=== PATIENT | male | born 1965 | race Caucasian/White ===

== ENCOUNTER 2021-02-26 19:32 | Observation (INO) | payer MEDICARE, OTHER ==
[2021-02-26] MEDS ORDERED: FUROSEMIDE 10 MG/ML 4 ML VIAL IV STA (19:56)
[2021-02-26] MEDS ORDERED: NITROGLYCERIN OINT 1 INCH/GM PACKET TOPICAL STA (19:57)
[2021-02-26 20:05] LABS: Basophils % (A) 1 %; Eosinophils # (A) 0.2 k/uL (0-0.7); Eosinophils % (A) 3 %; HCT 35.6 % (39.0-53.0); HGB 12.1 gm/dL (13.0-17.5); Lymphocytes # (A) 0.6 k/uL (1.0-4.8); Lymphocytes % (A) 10 %; MCV 91.2 fL (80.0-100.0); Monocytes # (A) 0.4 k/uL (0-1.0); Monocytes % (A) 7 %; Neutrophils # (A) 4.7 k/uL (1.3-7.7); Neutrophils % (A) 77 %; Platelet Count 127 k/uL (150-450)
--- NOTE | 2021-02-26 20:07 | ED ---
General Adult HPI - General Chief complaint: Shortness of Breath Stated complaint: VINAY childs Time Seen by Provider: 02/26/21 19:35 Source: patient, EMS, RN notes reviewed, old records reviewed Mode of arrival: EMS Limitations: no limitations - History of Present Illness Initial comments: This a 55-year-old male who presents emergency Department complaining of swelling to his legs which is getting worse difficulty breathing and particularly worse if he lays down. Patient states his been ongoing for the last few days and getting progressively worse. Patient states he's had a little swelling his feet the past but never up his legs into his thighs. Patient states the difficulty breathing is also new. Patient states that rehabilitation center for opiate abuse and he is currently on methadone. Patient denies any fever or chills. Patient denies any chest pain or palpitations. Patient denies any abdominal pain patient denies nausea vomiting diarrhea. Patient denies any calf pain. - Related Data Allergies Allergy/AdvReac Type Severity Reaction Status Date / Time No Known Allergies Allergy Verified 02/26/21 19:41 Review of Systems ROS Statement: Those systems with pertinent positive or pertinent negative responses have been documented in the HPI. ROS Other: All systems not noted in ROS Statement are negative. Past Medical History Past Medical History: No Reported History History of Any Multi-Drug Resistant Organisms: None Reported Past Surgical History: Orthopedic Surgery Additional Past Surgical History / Comment(s): rt knee, left shoulder Past Psychological History: Anxiety, Depression Smoking Status: Current every day smoker Past Alcohol Use History: None Reported Past Drug Use History: Cocaine General Exam - General Exam Comments Initial Comments: GENERAL: Patient is well-developed and well-nourished. Patient is nontoxic and well- hydrated and is in mild distress. ENT: Neck is soft and supple. No significant lymphadenopathy is noted. Oropharynx is clear. Moist mucous membranes. Neck has full range of motion without eliciting any pain. EYES: The sclera were anicteric and conjunctiva were pink and moist. Extraocular movements were intact and pupils were equal round and reactive to light. Eyelids were unremarkable. PULMONARY: Patient is crackles in the bases CARDIOVASCULAR: There is a regular rate and rhythm without any murmurs gallops or rubs. ABDOMEN: Soft and nontender with normal bowel sounds. SKIN: Skin is clear with no lesions or rashes and otherwise unremarkable. NEUROLOGIC: Patient is alert and oriented x3. Cranial nerves II through XII are grossly intact. Motor and sensory are also intact. Normal speech, volume and content. Symmetrical smile. MUSCULOSKELETAL: Normal extremities with adequate strength and full range of motion. 2+ edema legs up to the knees LYMPHATICS: No significant lymphadenopathy is noted PSYCHIATRIC: Normal psychiatric evaluation. Limitations: no limitations Course Vital Signs 02/26/21 19:35 Temperature 98.3 F Pulse Rate 55 L Respiratory 18 Rate Blood Pressure 136/97 O2 Sat by Pulse 94 L Oximetry Medical Decision Making - Medical Decision Making EKG shows sinus bradycardia 56 bpm WV interval 238 QRS is under 26 QT interval 472 QTC is 455. Patient's EKG shows no ST segment elevation or depression per patient's right bundle andreea block. Chest x-ray shows interstitial edema. I spoke with [facility] [place] Divisionist agreed to admit the patient admitted the patient wrote admitting orders extended Lasix Nitropaste on the floor and I consult to cardiology. - Lab Data Result diagrams: 02/26/21 19:57 Lab Results 02/26/21 02/26/21 02/26/21 Range/Units 19:57 19:57 19:57 WBC 6.0 (3.8-10.6) k/uL RBC 3.90 L (4.30-5.90) m/uL Hgb 12.1 L (13.0-17.5) gm/dL Hct 35.6 L (39.0-53.0) % MCV 91.2 (80.0-100.0) fL MCH 31.0 (25.0-35.0) pg MCHC 34.0 (31.0-37.0) g/dL RDW 14.0 (11.5-15.5) % Plt Count 127 L (150-450) k/uL MPV 9.0 Neutrophils % 77 % Lymphocytes % 10 % Monocytes % 7 % Eosinophils % 3 % Basophils % 1 % Neutrophils # 4.7 (1.3-7.7) k/uL Lymphocytes # 0.6 L (1.0-4.8) k/uL Monocytes # 0.4 (0-1.0) k/uL Eosinophils # 0.2 (0-0.7) k/uL Basophils # 0.0 (0-0.2) k/uL PT 11.5 (9.0-12.0) sec INR 1.1 (<1.2) APTT 28.4 (22.0-30.0) sec Plasma Lactic Acid Dereck 0.9 (0.7-2.0) mmol/L Disposition Clinical Impression: Acute pulmonary edema Disposition: ADMITTED IP TO THIS HOSP Referrals: None,Stated [Primary Care Provider] - 1-2 days Time of Disposition: 20:28
[2021-02-26 20:17] LABS: INR 1.1 (<1.2); Partial Thromboplastin Time 28.4 sec (22.0-30.0); Prothrombin Time 11.5 sec (9.0-12.0)
--- NOTE | 2021-02-26 20:22 | XR ---
EXAMINATION TYPE: XR chest 2V DATE OF EXAM: 02/26/2021 COMPARISON: NONE HISTORY: Difficulty breathing. TECHNIQUE: Frontal and lateral views of the chest are obtained. FINDINGS: There is mild interstitial prominence with superimposed hazy opacity. No focal consolidati on, pleural effusion, or pneumothorax seen. The cardiac silhouette size is enlarged. The osseous s tructures are without acute abnormality. Partially imaged left shoulder arthroplasty seen. IMPRESSION: Mild interstitial edema/atelectasis.
[2021-02-26 20:28] LABS: ALT 31 U/L (4-49); AST 37 U/L (17-59); African American GFR (CKD) >90 (>60 ml/min/1.73 sqM); Albumin 3.7 g/dL (3.5-5.0); Alkaline Phosphatase 59 U/L (38-126); Anion Gap 8 mmol/L; Blood Urea Nitrogen 16 mg/dL (9-20); Calcium 8.8 mg/dL (8.4-10.2); Carbon Dioxide 25 mmol/L (22-30); Chloride 103 mmol/L (98-107); Glucose 105 mg/dL (74-99); Magnesium 1.7 mg/dL (1.6-2.3); Non-African American GFR(CKD) >90 (>60 ml/min/1.73 sqM); Sodium 136 mmol/L (137-145); Total Bilirubin 0.4 mg/dL (0.2-1.3); Total Protein 6.2 g/dL (6.3-8.2)
[2021-02-26 20:29] LABS: Potassium 4.5 mmol/L (3.5-5.1)
[2021-02-27] MEDS: FUROSEMIDE 10 MG/ML 4 ML VIAL IV SCH ×3 (06:14→22:29)
[2021-02-27] MEDS: METHADONE 10 MG TAB PO SCH (08:44)
[2021-02-27] MEDS: METHADONE 5 MG TAB PO SCH (08:44)
[2021-02-27] MEDS ORDERED: NITROGLYCERIN OINT 1 INCH/GM PACKET TOPICAL SCH (09:00)
[2021-02-27] MEDS ORDERED: ACETAMINOPHEN TAB 325 MG TAB PO PRN (09:18)
[2021-02-27] MEDS ORDERED: ALBUTEROL NEBULIZED 2.5 MG/3 ML INHALATION PRN (09:18)
[2021-02-27] MEDS ORDERED: CALCIUM MAGNESIUM ZINC PO PRN (09:18)
[2021-02-27] MEDS ORDERED: D3 PO PRN (09:18)
[2021-02-27] MEDS ORDERED: guaiFENesin SYRUP 100MG/5ML 200 MG/10 ML CUP PO PRN (09:18)
[2021-02-27] MEDS ORDERED: IPRATROPIUM-ALBUTEROL 3 ML NEB INHALATION PRN (09:20)
--- NOTE | 2021-02-27 10:51 | P.HPIM ---
History of Present Illness 51-year-old male came in with extensive bilateral lower extremity edema extending up to the scrotum. Denied any history of congestive heart failure cannot disease in the past and patient has multiple drug drug overdose history never used IV drugs denied any history of cirrhosis liver enzymes are essentially within normal limits. Patient BNP is not high patient doesn't have any elevated JVD either chest x-ray which is suspicious for interstitial infiltrates, BNP is only 342. Patient received IV Lasix with good urine output. Cardiology was consulted echo cardiac name is being obtained no clinical evidence of cirrhosis. Hepatitis panel is being obtained patient is free of drugs for about a month patient is coming in from the rehabilitation program and is on methadone. Patient used fentanyl and cocaine in the past. This also coming of shortness of breath and orthopnea no significant history of paroxysmal nocturnal dyspnea REVIEW OF SYSTEMS: CONSTITUTIONAL: No fever, no malaise, no fatigue. HEENT: No recent visual problems or hearing problems. Denied any sore throat. CARDIOVASCULAR: No PND, no palpitations, no syncope. PULMONARY: No shortness of breath, no cough, no hemoptysis. GASTROINTESTINAL: No diarrhea, no nausea, no vomiting, no abdominal pain. NEUROLOGICAL: No headaches, no weakness, no numbness. HEMATOLOGICAL: Denies any bleeding or petechiae. GENITOURINARY: Denies any burning micturition, frequency, or urgency. MUSCULOSKELETAL/RHEUMATOLOGICAL: Denies any joint pain, swelling, or any muscle pain. ENDOCRINE: Denies any polyuria or polydipsia. The rest of the 14-point review of systems is negative. PHYSICAL EXAMINATION: GENERAL: The patient is alert and oriented x3, not in any acute distress. Well developed, well nourished. HEENT: Pupils are round and equally reacting to light. EOMI. No scleral icterus. No conjunctival pallor. Normocephalic, atraumatic. No pharyngeal erythema. No thyromegaly. CARDIOVASCULAR: S1 and S2 present. No murmurs, rubs, or gallops. PULMONARY: Chest is clear to auscultation, no wheezing or crackles. ABDOMEN: Soft, nontender, nondistended, normoactive bowel sounds. No palpable organomegaly. MUSCULOSKELETAL: No joint swelling or deformity. EXTREMITIES: No cyanosis, clubbing, extensive bilateral lower extremity edema NEUROLOGICAL: Gross neurological examination did not reveal any focal deficits. SKIN: No rashes. Assessment and plan -Volume overload bilateral lower extremity edema: Patient is undergoing workup for congestive heart failure no clinical evidence of cirrhosis hepatis panel will be obtained. Patient does have history of cocaine use -Mild sinus bradycardia secondary to levsin and is being held -History of drug abuse patient has not been using drugs for about a month and patient is an rehabitation program -Shortness of breath possibly of congestive heart failure echo cardiac stenting continue with IV Lasix. -Hypertension -Depression DVT prophylaxis: Lovenox Past Medical History Past Medical History: Hyperlipidemia History of Any Multi-Drug Resistant Organisms: None Reported Past Surgical History: Orthopedic Surgery Additional Past Surgical History / Comment(s): rt knee, left shoulder Past Psychological History: Anxiety, Depression Smoking Status: Current every day smoker Past Alcohol Use History: None Reported Past Drug Use History: Cocaine, Marijuana - Past Family History Mother History Unknown: Yes Medications and Allergies Home Medications Medication Instructions Recorded Confirmed Type Acetaminophen [Tylenol 8 Hour] 650 mg PO Q4H PRN 02/26/21 02/26/21 History Albuterol Inhaler [Ventolin Hfa 2 puff INHALATION RT-Q4H PRN 02/26/21 02/26/21 History Inhaler] Calcium,Magnesium,Zinc W/D3 1 tab PO TID PRN 02/26/21 02/26/21 History Hyoscyamine Sulfate [Levsin-Sl] 0.125 mg SL QID PRN 02/26/21 02/26/21 History Ibuprofen [Motrin Ib] 600 mg PO Q6H PRN 02/26/21 02/26/21 History Methadone HCl [Methadone Intensol] 95 mg PO DAILY 02/26/21 02/26/21 History Multivitamins, Thera [Multivitamin 1 tab PO DAILY 02/26/21 02/26/21 History (formulary)] Thiamine [Vitamin B-1] 100 mg PO DAILY 02/26/21 02/26/21 History guaiFENesin [Diabetic Tussin] 200 mg PO Q4H PRN 02/26/21 02/26/21 History lisinopriL [Zestril] 20 mg PO DAILY 02/26/21 02/26/21 History ondansetron HCL [Zofran] 8 mg PO Q6H PRN 02/26/21 02/26/21 History traZODone HCL 50 - 150 mg PO HS PRN 02/26/21 02/26/21 History Allergies Allergy/AdvReac Type Severity Reaction Status Date / Time No Known Allergies Allergy Verified 02/26/21 21:14 Physical Exam Vitals: Vital Signs Temp Pulse Pulse Resp BP BP Pulse Ox 02/27/21 08:47 56 L 18 143/82 91 L 02/27/21 04:00 97.4 F L 52 L 18 138/58 99 02/27/21 02:00 54 L 18 02/27/21 00:00 97.8 F 54 L 18 148/96 98 02/26/21 22:07 53 L 18 131/86 94 L 02/26/21 20:32 54 L 18 149/95 96 02/26/21 19:35 98.3 F 55 L 18 136/97 94 L Intake and Output 02/26/21 02/27/21 02/27/21 22:59 06:59 14:59 Output Total 1200 Balance -1200 Output: Urine 1200 Other: Weight 95.254 kg Results CBC & Chem 7: 02/26/21 19:57 02/26/21 19:57 Labs: Abnormal Lab Results - Last 24 Hours (Table) 02/26/21 02/26/21 Range/Units 19:57 19:57 RBC 3.90 L (4.30-5.90) m/uL Hgb 12.1 L (13.0-17.5) gm/dL Hct 35.6 L (39.0-53.0) % Plt Count 127 L (150-450) k/uL Lymphocytes # 0.6 L (1.0-4.8) k/uL Sodium 136 L (137-145) mmol/L Glucose 105 H (74-99) mg/dL Total Protein 6.2 L (6.3-8.2) g/dL Thrombosis Risk Factor Assmnt - Choose All That Apply Each Factor Represents 1 point: Age 41-60 years, Heart failure (<1month), Obesity (BMI >25) Thrombosis Risk Factor Assessment Total Risk Factor Score: 3 Thrombosis Risk Factor Assessment Level: Moderate Risk
[2021-02-27] MEDS: IPRATROPIUM-ALBUTEROL 3 ML NEB INHALATION SCH ×3 (11:16→20:50)
[2021-02-27] MEDS: DOXYCYCLINE 100 MG CAP PO SCH (11:24)
[2021-02-27] MEDS: FAMOTIDINE 20 MG TAB PO SCH ×2 (11:24→22:30)
--- NOTE | 2021-02-27 12:54 | P.CRDCN ---
History of Present Illness Consult date: 02/27/21 History of present illness: HISTORY OF PRESENT ILLNESS: This is a 55 year old male with a past medical history significant for hypertension, nicotine dependence and cocaine and fentanyl abuse. 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 We have been asked to see the patient in consultation for CHF. Patient examined at the bedside. Patient reports he is currently at [facility] for rehab. He reports he has been there for 3 weeks and reports last time he used drugs was approximately 4 weeks ago. He reports over the last 2 weeks he has noticed progressive dyspnea and increased lower extremity edema. He denies chest pain or pressure. He presented to the hospital for further evaluation. The patient was started on IV Lasix. Patient states his breathing and lower extremity edema have improved. The patient does have a productive cough at the time of my examination. The patient leaves he had a history of a cardiac catheterization performed at [place] about 5 years ago and believes he had a 60% blockage in one of his arteries. EKG reveals sinus mechanism with right bundle branch block Chest xray mild interstitial edema/atelectasis Laboratory data: WBC 6.0. Hemoglobin 12.1. Platelet count 127. Sodium 136. Potassium 4.5. BUN 16. Creatinine 0.75. Lactic acid 0.9. Magnesium 1.7. ProBNP 342. Troponin negative 1. Current home cardiac medications include lisinopril 20 mg daily REVIEW OF SYSTEMS: At the time of my exam: CONSTITUTIONAL: Denies fever or chills. HEENT: Denies blurred vision, vision changes, or eye pain. Denies hemoptysis CARDIOVASCULAR: Denies chest pain. Denies orthopnea. Denies PND. Denies palpitations RESPIRATORY: Denies shortness of breath. GASTROINTESTINAL: Denies abdominal pain. Denies nausea or vomiting. HEMATOLOGIC: Denies bleeding disorders. GENITOURINARY: Denies any blood in urine. SKIN: Denies pruitis. Denies rash. PHYSICAL EXAM: VITAL SIGNS: Reviewed. GENERAL: Well-developed in no acute distress. HEENT: Head is normocephalic. Pupils are equal, round. Sclerae anicteric. Mucous membranes of the mouth are moist. Neck supple. No JVD or thyromegaly LUNGS: Respirations even and unlabored. Lungs with bilateral wheezing and bibasilar rales. HEART: Regular rate and rhythm. S1 and S2 heard. ABDOMEN: Soft. Nondistended. Nontender. EXTREMITIES: Normal range of motion. No clubbing or cyanosis. Peripheral pulses intact. Bilateral lower extremity edema noted, right worse than left NEUROLOGIC: Awake and alert. Oriented x 3. ASSESSMENT: Shortness of breath with lower extremity edema, suspect acute congestive heart failure, despite normal BNP Hypertension Nicotine dependence Cocaine and fentanyl abuse, currently in rehab PLAN: Obtain 2D echo to assess cardiac structure and function Resume home dose of Lisinopril Continue IV lasix Monitor kidney function Accurate I&O Daily weights Recommend abstinence from nicotine and drugs Further recommendations pending patient's course Nurse practitioner note has been reviewed by physician. Signing provider agrees with the documented findings, assessment, and plan of care. Past Medical History Past Medical History: Hyperlipidemia History of Any Multi-Drug Resistant Organisms: None Reported Past Surgical History: Orthopedic Surgery Additional Past Surgical History / Comment(s): rt knee, left shoulder Past Psychological History: Anxiety, Depression Smoking Status: Current every day smoker Past Alcohol Use History: None Reported Past Drug Use History: Cocaine, Marijuana - Past Family History Mother History Unknown: Yes Medications and Allergies Home Medications Medication Instructions Recorded Confirmed Type Acetaminophen [Tylenol 8 Hour] 650 mg PO Q4H PRN 02/26/21 02/26/21 History Albuterol Inhaler [Ventolin Hfa 2 puff INHALATION RT-Q4H PRN 02/26/21 02/26/21 History Inhaler] Calcium,Magnesium,Zinc W/D3 1 tab PO TID PRN 02/26/21 02/26/21 History Hyoscyamine Sulfate [Levsin-Sl] 0.125 mg SL QID PRN 02/26/21 02/26/21 History Ibuprofen [Motrin Ib] 600 mg PO Q6H PRN 02/26/21 02/26/21 History Methadone HCl [Methadone Intensol] 95 mg PO DAILY 02/26/21 02/26/21 History Multivitamins, Thera [Multivitamin 1 tab PO DAILY 02/26/21 02/26/21 History (formulary)] Thiamine [Vitamin B-1] 100 mg PO DAILY 02/26/21 02/26/21 History guaiFENesin [Diabetic Tussin] 200 mg PO Q4H PRN 02/26/21 02/26/21 History lisinopriL [Zestril] 20 mg PO DAILY 02/26/21 02/26/21 History ondansetron HCL [Zofran] 8 mg PO Q6H PRN 02/26/21 02/26/21 History traZODone HCL 50 - 150 mg PO HS PRN 02/26/21 02/26/21 History Allergies Allergy/AdvReac Type Severity Reaction Status Date / Time No Known Allergies Allergy Verified 02/26/21 21:14 Physical Exam Vitals: Vital Signs Temp Pulse Pulse Resp BP BP Pulse Ox 02/27/21 08:47 56 L 18 143/82 91 L 02/27/21 04:00 97.4 F L 52 L 18 138/58 99 02/27/21 02:00 54 L 18 02/27/21 00:00 97.8 F 54 L 18 148/96 98 02/26/21 22:07 53 L 18 131/86 94 L 02/26/21 20:32 54 L 18 149/95 96 02/26/21 19:35 98.3 F 55 L 18 136/97 94 L Intake and Output 02/26/21 02/27/21 02/27/21 22:59 06:59 14:59 Output Total 1200 Balance -1200 Output: Urine 1200 Other: Weight 95.254 kg Results 02/26/21 19:57 02/26/21 19:57 Cardiac Enzymes 02/26/21 02/26/21 Range/Units 19:57 19:57 AST 37 (17-59) U/L Troponin I <0.012 (0.000-0.034) ng/mL Coagulation 02/26/21 Range/Units 19:57 PT 11.5 (9.0-12.0) sec APTT 28.4 (22.0-30.0) sec CBC 02/26/21 Range/Units 19:57 WBC 6.0 (3.8-10.6) k/uL RBC 3.90 L (4.30-5.90) m/uL Hgb 12.1 L (13.0-17.5) gm/dL Hct 35.6 L (39.0-53.0) % Plt Count 127 L (150-450) k/uL Comprehensive Metabolic Panel 02/26/21 Range/Units 19:57 Sodium 136 L (137-145) mmol/L Potassium 4.5 (3.5-5.1) mmol/L Chloride 103 (98-107) mmol/L Carbon Dioxide 25 (22-30) mmol/L BUN 16 (9-20) mg/dL Creatinine 0.75 (0.66-1.25) mg/dL Glucose 105 H (74-99) mg/dL Calcium 8.8 (8.4-10.2) mg/dL AST 37 (17-59) U/L ALT 31 (4-49) U/L Alkaline Phosphatase 59 (38-126) U/L Total Protein 6.2 L (6.3-8.2) g/dL Albumin 3.7 (3.5-5.0) g/dL Current Medications Generic Name Dose Route Start Last Admin Trade Name Freq PRN Reason Stop Dose Admin Furosemide 40 mg 02/27/21 06:00 02/27/21 06:14 Furosemide 10 Mg/Ml 4 Ml Vial IV 40 mg Q8H DULCE Administration Methadone HCl 90 mg 02/27/21 09:00 02/27/21 08:44 Methadone 10 Mg Tab PO 90 mg DAILY DULCE Administration Methadone HCl 5 mg 02/27/21 09:00 02/27/21 08:44 Methadone 5 Mg Tab PO 5 mg DAILY DULCE Administration Intake and Output 02/26/21 02/27/21 02/27/21 22:59 06:59 14:59 Output Total 1200 Balance -1200 Output: Urine 1200 Other: Weight 95.254 kg 02/26/21 19:57 02/26/21 19:57
[2021-02-27 16:19] LABS: Hepatitis A Antibody IgM Nonreactive (Nonreactive); Hepatitis B Core IgM Nonreactive (Nonreactive); Hepatitis B Surface Antigen Nonreactive (Nonreactive); Hepatitis C IgG Antibody Nonreactive (Nonreactive)
[2021-02-27] MEDS: SYMBICORT 160-4.5 MCG INHALER INHALATION SCH (20:50)
[2021-02-27] MEDS ORDERED: traZODone HCL 50 MG TAB PO PRN (21:00)
[2021-02-28] MEDS: DOXYCYCLINE 100 MG CAP PO SCH ×2 (00:17→08:44)
[2021-02-28] MEDS: FUROSEMIDE 10 MG/ML 4 ML VIAL IV SCH (06:52)
[2021-02-28 07:04] LABS: African American GFR (CKD) >90 (>60 ml/min/1.73 sqM); Anion Gap 9 mmol/L; Blood Urea Nitrogen 17 mg/dL (9-20); Calcium 9.7 mg/dL (8.4-10.2); Carbon Dioxide 33 mmol/L (22-30); Chloride 96 mmol/L (98-107); Glucose 103 mg/dL (74-99); Non-African American GFR(CKD) >90 (>60 ml/min/1.73 sqM); Potassium 3.8 mmol/L (3.5-5.1); Sodium 138 mmol/L (137-145)
[2021-02-28] MEDS: IPRATROPIUM-ALBUTEROL 3 ML NEB INHALATION SCH ×2 (07:37→11:09)
[2021-02-28] MEDS: SYMBICORT 160-4.5 MCG INHALER INHALATION SCH (07:37)
[2021-02-28 08:38] VITALS: BP 146/86; RESP 16; TEMP 98.7
[2021-02-28] MEDS: FAMOTIDINE 20 MG TAB PO SCH (08:44)
[2021-02-28] MEDS: METHADONE 5 MG TAB PO SCH (08:45)
[2021-02-28] MEDS: METHADONE 10 MG TAB PO SCH (08:46)
[2021-02-28] MEDS ORDERED: lisinopriL 20 MG TAB PO SCH (09:00)
[2021-02-28] MEDS ORDERED: THIAMINE 100 MG TAB PO SCH (09:00)
[2021-02-28] MEDS ORDERED: ENOXAPARIN 40 MG/0.4 ML SYRINGE SQ SCH (09:00)
--- NOTE | 2021-02-28 10:34 | ECHOF ---
Referral Reason:LV function MEASUREMENTS -------- HEIGHT: 172.7 cm WEIGHT: 95.3 kg BP: 138/58 RVIDd: 3.7 cm (< 3.3) IVSd: 1.1 cm (0.6 - 1.1) LVIDd: 4.5 cm (3.9 - 5.3) LVPWd: 1.2 cm (0.6 - 1.1) IVSs: 1.8 cm LVIDs: 3.3 cm LVPWs: 1.8 cm LA Diam: 3.6 cm (2.7 - 3.8) LAESV Index (A-L): 31.08 ml/m Ao Diam: 3.8 cm (2.0 - 3.7) AV Cusp: 2.2 cm (1.5 - 2.6) MV EXCURSION: 19.436 mm (> 18.000) MV EF SLOPE: 81 mm/s (70 - 150) EPSS: 0.5 cm MV E Vinnie: 0.84 m/s MV DecT: 217 ms MV A Vinnie: 0.62 m/s MV E/A Ratio: 1.35 AR PHT: 1069 ms RAP: 5.00 mmHg RVSP: 35.87 mmHg FINDINGS -------- Resting bradycardia (HR<60bpm). This was a technically good study. The left ventricular size is normal. There is borderline concentric left ventricular hypertrophy. Overall left ventricular systolic function is normal with, an EF between 60 - 65 %. The right ventricle is mildly enlarged. LA is midly dilated 29-33ml/m2. The right atrium is normal in size. Interatrial and interventricular septum intact. There is mild aortic valve sclerosis. There is mild aortic regurgitation. There is trace to mild mitral regurgitation. Mild tricuspid regurgitation present. There is mild pulmonary hypertension. The right ventricular systolic pressure, as measured by Doppler, is 35.87mmHg. Trace/mild (physiologic) pulmonic regurgitation. The aortic root is dilated measuring 3.8cm. Normal inferior vena cava with normal inspiratory collapse consistent with estimated right atrial pre ssure of 5 mmHg. The inferior vena cava is mildly dilated. There is no pericardial effusion. CONCLUSIONS -------- 1. The left ventricular size is normal. 2. There is borderline concentric left ventricular hypertrophy. 3. Overall left ventricular systolic function is normal with, an EF between 60 - 65 %. 4. The right ventricle is mildly enlarged. 5. LA is midly dilated 29-33ml/m2. 6. There is mild aortic valve sclerosis. 7. There is mild aortic regurgitation. 8. There is trace to mild mitral regurgitation. 9. Mild tricuspid regurgitation present. 10. There is mild pulmonary hypertension. 11. The right ventricular systolic pressure, as measured by Doppler, is 35.87mmHg. 12. Trace/mild (physiologic) pulmonic regurgitation. 13. The aortic root is dilated measuring 3.8cm. 14. The inferior vena cava is mildly dilated. 15. There is no pericardial effusion. COMPUTER PROGRAMMER: Leonora Hrut RDCS
[2021-02-28] MEDS ORDERED: NICOTINE 14MG/24HR PATCH TRANSDERM SCH (11:15)
[2021-02-28 11:27] VITALS: PULSE 59
[2021-02-28 11:40] VITALS: BMI 29.4
--- NOTE | 2021-02-28 13:25 | P.PN ---
Subjective Progress Note Date: 02/28/21 HISTORY OF PRESENT ILLNESS: This is a 55 year old male with a past medical history significant for hypertension, nicotine dependence and cocaine and fentanyl abuse. 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 We have been asked to see the patient in consultation for CHF. Patient examined at the bedside. Patient reports he is currently at [facility] for rehab. He reports he has been there for 3 weeks and reports last time he used drugs was approximately 4 weeks ago. He reports over the last 2 weeks he has noticed progressive dyspnea and increased lower extremity edema. He denies chest pain or pressure. He presented to the hospital for further evaluation. The patient was started on IV Lasix. Patient states his breathing and lower extremity edema have improved. The patient does have a productive cough at the time of my examination. The patient leaves he had a history of a cardiac catheterization performed at [place] about 5 years ago and believes he had a 60% blockage in one of his arteries. EKG reveals sinus mechanism with right bundle branch block Chest xray mild interstitial edema/atelectasis Laboratory data: WBC 6.0. Hemoglobin 12.1. Platelet count 127. Sodium 136. Potassium 4.5. BUN 16. Creatinine 0.75. Lactic acid 0.9. Magnesium 1.7. ProBNP 342. Troponin negative 1. Current home cardiac medications include lisinopril 20 mg daily Addendum entered and electronically signed by Lance Hernandez DO 02/27/21 17:51: Patient being treated for heart failure however also has significant cough with increased productive sputum and strong tobacco abuse history with wheeze on exam. His LE edema is improved and overall does not appear significant volume overloaded currently. Continue to monitor repsonse of diuresis however suspect additional component of bronchitis/ COPD. 02/28/2021 Patient examined this morning at the bedside. Patient denies chest pain or pressure. He states his shortness of breath is improving. He does report feeling some wheezing still today. He is receiving IV Lasix. Echocardiogram completed revealed ejection fraction 60-65%, mild aortic regurgitation, trace to mild mitral regurgitation, mild tricuspid regurgitation, and mild pulmonary retention PHYSICAL EXAM: VITAL SIGNS: Reviewed. GENERAL: Well-developed in no acute distress. HEENT: Head is normocephalic. Pupils are equal, round. Sclerae anicteric. Mucous membranes of the mouth are moist. Neck supple. No JVD or thyromegaly LUNGS: Respirations even and unlabored. Lungs with scattered expiratory wheezing HEART: Regular rate and rhythm. S1 and S2 heard. ABDOMEN: Soft. Nondistended. Nontender. EXTREMITIES: Normal range of motion. No clubbing or cyanosis. Peripheral pu lses intact. Trace bilateral lower extremity edema NEUROLOGIC: Awake and alert. Oriented x 3. ASSESSMENT: Shortness of breath with lower extremity edema, suspect acute diastolic congestive heart failure, despite normal BNP Hypertension Nicotine dependence Cocaine and fentanyl abuse, currently in rehab PLAN: Continue current cardiac medications Recommend abstinence from nicotine and drugs Patient is requesting to be discharged back to [facility] today. Agreeable to discharge today from a cardiac standpoint. We will defer to internal medicine Nurse practitioner note has been reviewed by physician. Signing provider agrees with the documented findings, assessment, and plan of care. Objective - Vital Signs Vital signs: Vital Signs Temp 98.7 F 02/28/21 08:00 Pulse 59 L 02/28/21 11:22 Resp 16 02/28/21 08:00 BP 146/86 02/28/21 08:00 Pulse Ox 90 L 02/28/21 08:00 Intake & Output 02/27/21 02/28/21 02/28/21 18:59 06:59 18:59 Intake Total 120 Output Total 900 1100 Balance -900 -980 Weight 87.8 kg 87.8 kg Intake: Oral 120 Output: Urine 900 1100 - Labs CBC & Chem 7: 02/26/21 19:57 02/28/21 06:19 Labs: Abnormal Lab Results - Last 24 Hours (Table) 02/28/21 Range/Units 06:19 Chloride 96 L (98-107) mmol/L Carbon Dioxide 33 H (22-30) mmol/L Glucose 103 H (74-99) mg/dL
--- NOTE | 2021-02-28 16:26 | P.DS ---
Providers Date of admission: 02/26/21 20:28 Attending physician: Nick Castle Consults: 02/26/21 20:33 Consult Physician Routine Consulting Provider: [facility] Consult Reason/Comments: Acute pulmonary edema Do you want consulting provider notified?: Yes Primary care physician: Stated None Hospital Course: 51-year-old male came in with extensive bilateral lower extremity edema extending up to the scrotum. Denied any history of congestive heart failure cannot disease in the past and patient has multiple drug drug overdose history never used IV drugs denied any history of cirrhosis liver enzymes are essentially within normal limits. Patient BNP is not high patient doesn't have any elevated JVD either chest x-ray which is suspicious for interstitial infiltrates, BNP is only 342. Patient received IV Lasix with good urine output. Cardiology was consulted echo cardiac name is being obtained no clinical evidence of cirrhosis. Hepatitis panel is being obtained patient is free of d rugs for about a month patient is coming in from the rehabilitation program and is on methadone. Patient used fentanyl and cocaine in the past. This also coming of shortness of breath and orthopnea no significant history of paroxysmal nocturnal dyspnea 02/28/2021 Patient is significant improvement in pedal edema and heart failure status. Patient was treated for her chronic diastolic dysfunction with acute exacerbation patient will be discharged today to subacute rehabilitation patient's hepatitis panel is negative. PHYSICAL EXAMINATION: GENERAL: The patient is alert and oriented x3, not in any acute distress. Well developed, well nourished. HEENT: Pupils are round and equally reacting to light. EOMI. No scleral icterus. No conjunctival pallor. Normocephalic, atraumatic. No pharyngeal erythema. No thyromegaly. CARDIOVASCULAR: S1 and S2 present. No murmurs, rubs, or gallops. PULMONARY: Chest is clear to auscultation, no wheezing or crackles. ABDOMEN: Soft, nontender, nondistended, normoactive bowel sounds. No palpable organomegaly. MUSCULOSKELETAL: No joint swelling or deformity. EXTREMITIES: No cyanosis, clubbing, extensive bilateral lower extremity edema NEUROLOGICAL: Gross neurological examination did not reveal any focal deficits. SKIN: No rashes. Assessment and plan -Volume overload bilateral lower extremity edema: Possibly secondary to congestive heart failure chronic diastolic dysfunction with acute exacerbation -Mild sinus bradycardia secondary to levsin will be discontinued -History of drug abuse patient has not been using drugs for about a [facility] -Hypertension -Depression Plan - Discharge Summary New Discharge Prescriptions: New Potassium Chloride [Potassium Chloride ER] 10 meq PO DAILY #30 tab predniSONE 10 mg PO DAILY #30 tab Tiotropium [place] [Spiriva] 1 cap INHALATION DAILY #1 each Albuterol Inhaler [Ventolin Hfa Inhaler] 2 puff INHALATION RT-QID PRN #18 gm PRN Reason: Shortness Of Breath Or Wheezing Doxycycline [Vibramycin] 100 mg PO BID #6 cap Furosemide [Lasix] 40 mg PO BID #30 tablet Famotidine [Pepcid] 20 mg PO BID #30 tablet Continue ondansetron HCL [Zofran] 8 mg PO Q6H PRN PRN Reason: Nausea Acetaminophen [Tylenol 8 Hour] 650 mg PO Q4H PRN PRN Reason: Pain Or Fever > 100.5 Thiamine [Vitamin B-1] 100 mg PO DAILY guaiFENesin [Diabetic Tussin] 200 mg PO Q4H PRN PRN Reason: Cough lisinopriL [Zestril] 20 mg PO DAILY Methadone HCl [Methadone Intensol] 95 mg PO DAILY Albuterol Inhaler [Ventolin Hfa Inhaler] 2 puff INHALATION RT-Q4H PRN PRN Reason: Shortness Of Breath traZODone HCL 50 - 150 mg PO HS PRN PRN Reason: SLEEP Multivitamins, Thera [Multivitamin (formulary)] 1 tab PO DAILY Ibuprofen [Motrin Ib] 600 mg PO Q6H PRN PRN Reason: Pain Calcium,Magnesium,Zinc W/D3 1 tab PO TID PRN PRN Reason: CRAMPS Discontinued Hyoscyamine Sulfate [Levsin-Sl] 0.125 mg SL QID PRN PRN Reason: Spasms Discharge Medication List Acetaminophen [Tylenol 8 Hour] 650 mg PO Q4H PRN 02/26/21 [History] Albuterol Inhaler [Ventolin Hfa Inhaler] 2 puff INHALATION RT-Q4H PRN 02/26/21 [History] Calcium,Magnesium,Zinc W/D3 1 tab PO TID PRN 02/26/21 [History] Ibuprofen [Motrin Ib] 600 mg PO Q6H PRN 02/26/21 [History] Methadone HCl [Methadone Intensol] 95 mg PO DAILY 02/26/21 [History] Multivitamins, Thera [Multivitamin (formulary)] 1 tab PO DAILY 02/26/21 [History] Thiamine [Vitamin B-1] 100 mg PO DAILY 02/26/21 [History] guaiFENesin [Diabetic Tussin] 200 mg PO Q4H PRN 02/26/21 [History] lisinopriL [Zestril] 20 mg PO DAILY 02/26/21 [History] ondansetron HCL [Zofran] 8 mg PO Q6H PRN 02/26/21 [History] traZODone HCL 50 - 150 mg PO HS PRN 02/26/21 [History] Albuterol Inhaler [Ventolin Hfa Inhaler] 2 puff INHALATION RT-QID PRN #18 gm 02/28/21 [Rx] Doxycycline [Vibramycin] 100 mg PO BID #6 cap 02/28/21 [Rx] Famotidine [Pepcid] 20 mg PO BID #30 tablet 02/28/21 [Rx] Furosemide [Lasix] 40 mg PO BID #30 tablet 02/28/21 [Rx] Potassium Chloride [Potassium Chloride ER] 10 meq PO DAILY #30 tab 02/28/21 [Rx] Tiotropium [place] [Spiriva] 1 cap INHALATION DAILY #1 each 02/28/21 [Rx] predniSONE 10 mg PO DAILY #30 tab 02/28/21 [Rx] Follow up Appointment(s)/Referral(s): Lance Hernandez DO [STAFF PHYSICIAN] - 1 Week (Spoke to Suzy. Office will call with appointment time) None,Stated [Primary Care Provider] - 3 Days (PLease schedule appointment with your primary care physicin) Ambulatory/Diagnostic Orders: Basic Metabolic Panel [LAB.AMB] Time Frame: 3 Days, Location: None Selected Patient Instructions/Handouts: Heart Failure (DC) Discharge Disposition: HOME SELF-CARE
== END 2021-02-28 13:35 | disposition home or self-care (01) ==
LOC: EC 19:32 → 3SCARD 20:28 → INTOOBSV 20:28 → 3SCARD 22:19 → UNDODISIN 02-28 13:35
PROVIDERS: ADMIT Hospitalist; ATTEND Hospitalist
DX: E87.70 Fluid overload, unspecified (principal); I11.0 Hypertensive heart disease with heart failure; I50.33 Acute on chronic diastolic (congestive) heart failure; R00.1 Bradycardia, unspecified; T44.3X5A Adverse effect of other parasympatholytics [anticholinergics and antimuscarinics] and spasmolytics, initial encounter; J98.11 Atelectasis; I08.3 Combined rheumatic disorders of mitral, aortic and tricuspid valves; I45.10 Unspecified right bundle-branch block; I27.20 Pulmonary hypertension, unspecified; I25.10 Atherosclerotic heart disease of native coronary artery without angina pectoris; E78.5 Hyperlipidemia, unspecified; F11.10 Opioid abuse, uncomplicated; F14.10 Cocaine abuse, uncomplicated; F41.9 Anxiety disorder, unspecified; F32.A Depression, unspecified; F17.200 Nicotine dependence, unspecified, uncomplicated; E66.9 Obesity, unspecified; Z68.29 Body mass index [BMI] 29.0-29.9, adult; Z20.822 Contact with and (suspected) exposure to COVID-19; Z79.899 Other long term (current) drug therapy; Z98.890 Other specified postprocedural states; Z86.59 Personal history of other mental and behavioral disorders; Z96.612 Presence of left artificial shoulder joint
CPT/HCPCS: 96376 ×2; 96372; 96374; 99285; 36415; 94640 ×4; 94760; 93005; 93306; 83880; 80053; 80048; 80074; 83605; 83735; 84484; 85025; 85610; 85730; 87635; 71046; G0378 ×3; S4990; J1940 ×3; J1650; S0109 ×4